=== PATIENT | male | born 2000 | race Caucasian/White ===

== ENCOUNTER 2024-06-05 10:24 | Emergency (ER) | payer MEDICAID, OTHER ==
[~2024-06-05] VITALS: Ht 177.8 cm; Wt 70.0 kg
[2024-06-05 11:33] VITALS: BP 121/73; PULSE 92; RESP 18; TEMP 98.4; O2SAT 100
== END 2024-06-05 11:47 | disposition home or self-care (01) ==
LOC: ER 10:24
DX: S20.219A Contusion of unspecified front wall of thorax, initial encounter (principal); V43.52XA Car driver injured in collision with other type car in traffic accident, initial encounter; Y93.I9 Activity, other involving external motion; Y92.89 Other specified places as the place of occurrence of the external cause; Y99.8 Other external cause status
CPT/HCPCS: 71046; 93005